=== PATIENT | male | born 1975 | race Caucasian/White ===

== ENCOUNTER 2020-04-10 01:11 | Outpatient (CLI) | payer OTHER, SELFPAY ==
[2020-04-10 21:41] LABS: SARS-CoV-2 RNA PCR Negative
== END 2020-04-10 01:12 | disposition home or self-care (01) ==
LOC: ANHCOVIDDT 01:11
PROVIDERS: PCP Family Medicine; Visit Provider Internal Medicine Gastroenterology
DX: Z01.818 Encounter for other preprocedural examination (principal); Z11.59 Encounter for screening for other viral diseases
CPT/HCPCS: 87635; C9803; U0003

== ENCOUNTER 2020-04-13 03:10 | Day surgery (SDC) | payer OTHER, SELFPAY ==
[2020-04-06 13:45] VITALS: BMI 38.7
[2020-04-13 09:57] VITALS: BMI 38.5
--- NOTE | 2020-04-13 10:07 | WPDANESEPPF ---
Anes - Initial Pre Proc Eval Procedure: Operation Date: 04/13/20 10:45 Proposed Procedures p Esophagogastroduodenoscopy&Screen Colon - Ac Yan MD Date/Time: 04/13/20 10:07 Surgeon: Ac Yan MD Pre Op Diagnosis: Alvarado's Esophagus, Neoplasm Screening Patient Data Age: 45 Gender: M Height: 6 ft 1 in Weight: 132.6 kg Allergies Allergy/AdvReac Type Severity Reaction Status Date / Time No Known Allergies Allergy Verified 04/13/20 09:56 Home Medications Medication Instructions Recorded Confirmed Type amlodipine 10 mg tablet 10 mg PO DAILY #90 tablet 01/19/20 04/06/20 Rx citalopram 20 mg tablet 20 mg PO DAILY #90 tablet 01/19/20 04/06/20 Rx losartan 100 mg tablet 100 mg PO DAILY #90 tablet 01/19/20 04/06/20 Rx cholecalciferol (vitamin D3) 1,250 1,250 mcg PO WEEKLY #12 cap 01/30/20 04/06/20 Rx mcg (50,000 unit) capsule esomeprazole magnesium 40 mg 40 mg PO DAILY #90 cap 02/24/20 04/06/20 Rx capsule,delayed release nystatin 100,000 unit/gram topical 1 applic TOPICAL BID #30 gm 03/18/20 04/06/20 Rx ointment peg 3350-electrolytes 236 240 ml PO Q10M #4000 ml 04/06/20 Rx gram-22.74 gram-6.74 gram-5.86 gram solution Patient hx anesthesia problems: none Family hx anesthesia problems: none PMFSH Past Medical History Medical History (Updated 03/25/20 @ 13:48 by Ac Yan MD) Anxiety Alvarado esophagus Hearing loss Hypertension PTSD (post-traumatic stress disorder) Rectal bleeding Surgical History Surgical History H/O arthroscopic knee surgery Social History Social History Smoking status: Never smoker Alcohol intake: never Substance use: never Substance use type: does not use Gender identity (if verbalized by the patient): Male Spiritual care concerns: No Agree to blood products: Yes Anes - Eval Final PreProcedure Day of Procedure 04/13/20 10:07 Patient weight: obese Heart: regular rate and rhythm Lungs: clear to auscultation Airway: Mallampati scale class II Neurological: alert and oriented Last oral intake: >/= 8 hours ASA classification: III Emergent: no Anesthetic plan: proceed Anesthesia type and monitoring: general GIVS and standard monitoring Informed Consent: The patient's anesthetic plan and its attendant risks and benefits were discussed with the patient/family/POA. Questions were solicited and answers provided to the satisfaction of the patient/family/POA.
[2020-04-13] MEDS: LACTATED RINGERS 1,000 ML 150 ML IV CONT (10:15)
[2020-04-13] MEDS: BENZOCAINE (*SP) 60 ML SPRAY CAN (HURRICAINE) 1 SPRAY MUCOUS MEM (11:10)
[2020-04-13 11:38] VITALS: BP 111/73; PULSE 76; RESP 17; O2SAT 94
[2020-04-13 11:48] VITALS: BP 115/78; PULSE 76; RESP 17; O2SAT 94
[2020-04-13 11:58] VITALS: BP 139/93; PULSE 71; RESP 17; O2SAT 100
== END 2020-04-13 12:25 | disposition home or self-care (01) ==
PROVIDERS: PCP Family Medicine; Visit Provider Internal Medicine Gastroenterology
PROC: 0DJ08ZZ Inspection of Upper Intestinal Tract, Via Natural or Artificial Opening Endoscopic (ICD-10-PCS; CPT 43235; principal; 2020-04-13 10:45)
DX: K92.1 Melena (principal); K57.30 Diverticulosis of large intestine without perforation or abscess without bleeding; K64.8 Other hemorrhoids; K21.0 Gastro-esophageal reflux disease with esophagitis; K44.9 Diaphragmatic hernia without obstruction or gangrene; K22.70 Barrett's esophagus without dysplasia; K29.50 Unspecified chronic gastritis without bleeding; I10 Essential (primary) hypertension; F41.9 Anxiety disorder, unspecified; F43.10 Post-traumatic stress disorder, unspecified; E66.9 Obesity, unspecified; Z68.38 Body mass index [BMI] 38.0-38.9, adult
CPT/HCPCS: 45378; 43239; 88305; J2704; J7120

== ENCOUNTER → 2021-01-22 06:45 | Outpatient (CLI) | payer OTHER, SELFPAY ==
[2021-01-23 00:41] LABS: SARS-CoV-2 RNA PCR Negative
== END ==
PROVIDERS: PCP Family Medicine; Visit Provider Family Medicine
DX: Z20.822 Contact with and (suspected) exposure to COVID-19 (principal); R05 Cough
CPT/HCPCS: C9803; U0003; U0005

== ENCOUNTER 2023-07-04 12:01 | Emergency (ER) | payer OTHER, SELFPAY ==
--- NOTE | ~2023-07-04 | XR_ITS ---
XR heel RT min 2V DATE: 07/04/2023 12:36 INDICATION: Bumped right heel one week ago. Right heel pain. TECHNIQUE: Axial and lateral views COMPARISON: None FINDINGS: No fracture or dislocation or bone destruction of the right calcaneus. IMPRESSION: Negative Reviewed, dictated and finalized at location B. IMPRESSION: Negative
--- NOTE | 2023-07-04 12:05 | ED.LOWEXIN ---
HPI - Extremity Injury (Lower) General Chief Complaint: Extremity Injury, Lower Stated Complaint: Rt Heal Pain Time Seen by Provider: 07/04/23 12:48 Source: patient and RN notes reviewed Mode of arrival: ambulatory Limitations: no limitations History of Present Illness HPI Narrative: 48-year-old male presents with concern for right foot injury. He reports on Sunday he tripped and landed hard on his foot. Reports pain on the lateral posterior foot. He reports he has been walking on the ball of his foot with slight improvement of symptoms until today when he stepped out of his truck and had a sudden burning pain. Reports he has difficulty walking on the foot at all now. He denies decreased sensation, strength, range of motion MD complaint: foot injury Related Data Allergies Allergy/AdvReac Type Severity Reaction Status Date / Time ketorolac [From Toradol] AdvReac coffee Verified 08/09/22 13:52 ground emesis Review of Systems Review of Systems: CONSTITUTIONAL: Denies malaise, chills, sweats, or fever. SKIN: Denies rash or itching, open skin, laceration, abrasion, redness, warmth, swelling. MUSCULOSKELETAL: Reports right foot pain NEUROLOGIC: Denies numbness, weakness All systems reviewed & are unremarkable except as noted in HPI and below PMFSH Past Medical History Medical History (Updated 07/04/23 @ 13:04 by Zroa Goldberg NP) Anxiety Alvarado esophagus Hearing loss Hypertension Jock itch PTSD (post-traumatic stress disorder) Rectal bleeding Surgical History Surgical History H/O arthroscopic knee surgery x4 3 on left 1 on right H/O hernia repair History of gastric surgery History of nasal surgery History of renal stent S/P cystoscopy with ureteral stent placement Family History Family History Mother Hypertension Cancer Father Hearing loss Sibling Diverticula, small intestine Social History Social History Smoking status: Never smoker Second hand tobacco smoke exposure: No Alcohol intake: current Alcohol use details: socially Substance use: never Substance use type: does not use Living arrangements: with family Occupation/Education: occupation Gender identity (if verbalized by the patient): Male Spiritual care concerns: No Agree to blood products: Yes Comments At time of signature, agree with nursing past medical, surgical, social and family history. There is no relevant family history pertinent to the presenting complaint Exam Narrative: GENERAL: Well-appearing, well-nourished, and in no acute distress. HEAD: Normocephalic, atraumatic. EYES: PERRLA, conjunctivae clear NECK: Supple. CHEST: Speaks in full sentences. No respiratory distress. HEART: Regular rate and rhythm. Normal and equal peripheral pulses. EXTREMITIES: Right ankle, foot, digits have grossly normal strength and sensation, throat normal range of motion. Mild lateral foot edema without erythema, warmth, or ecchymosis. Normal sensation with sensitivity to light touch and pain. Lateral heel tenderness. No open wounds, no skin tenting, no devitalized tissue or atrophy, no trophic changes, no obvious deformity, alignment normal, nearby joints and structures intact. Distal pulses palpable and equal bilaterally, skin warm, dry, pink. Capillary refill less than 3 seconds. SKIN: Warm, dry, no rash. NEURO: Alert and oriented x3. PSYCH: Normal mood and affect Course Course Emergency Course: Patient is aware of diagnosis, understands and agrees to treatment plan. Anticipatory guidance given. Patient agrees to follow-up as directed and is aware of reasons to seek care at the emergency department. Portions of this record may have been created with voice recognition software Level of Care: Express Care Visit Vital Signs Vi
[2023-07-04 12:15] VITALS: BP 143/98; PULSE 91; RESP 16; TEMP 36.4; O2SAT 99
[2023-07-04 12:20] VITALS: BP 143/98; PULSE 91; RESP 16; TEMP 36.4; O2SAT 99
== END 2023-07-04 13:11 | disposition short-term general hospital (02) ==
PROVIDERS: Emergency Provider Nurse Practitioner; PCP Family Medicine
DX: S99.921A Unspecified injury of right foot, initial encounter (principal); I10 Essential (primary) hypertension; W01.0XXA Fall on same level from slipping, tripping and stumbling without subsequent striking against object, initial encounter
CPT/HCPCS: 73650; 99213; G0463

== ENCOUNTER 2024-05-28 00:15 | Day surgery (SDC) | payer OTHER, SELFPAY ==
[2024-05-19 15:59] VITALS: BMI 41.0
[2024-05-28] MEDS: LACTATED RINGERS 1,000 ML 150 ML IV CONT (12:53)
--- NOTE | 2024-05-28 13:27 | WPDANESEPPF ---
Anes - Initial Pre Proc Eval Procedure: Operation Date: 05/28/24 14:00 Proposed Procedures p Esophagogastroduodenoscopy - Ac Yan MD Date/Time: 05/28/24 13:27 Surgeon: Ac Yan MD Pre Op Diagnosis: Alvarado's, GERD, peptic ulcer Patient Data Age: 49 Gender: M Height: 1.85 m Weight: 141 kg Allergies Allergy/AdvReac Type Severity Reaction Status Date / Time ketorolac [From Toradol] AdvReac coffee Verified 05/28/24 12:41 ground emesis Home Medications Medication Instructions Recorded Confirmed Type esomeprazole magnesium 40 mg 40 mg PO DAILY #90 caps 02/24/20 05/28/24 Rx capsule,delayed release (Nexium) citalopram 40 mg tablet See Rx Instructions .Route 03/19/24 05/28/24 Rx .COMPLEX #90 tabs amlodipine 10 mg tablet 10 mg PO DAILY #30 tabs 04/10/24 05/28/24 Rx bupropion HCl 75 mg tablet 75 mg PO BID #60 tabs 04/10/24 05/28/24 Rx nystatin 100,000 unit/gram topical 1 applic topical BID #30 grams 04/10/24 05/28/24 Rx cream rosuvastatin 5 mg tablet 5 mg PO DAILY #90 tabs 04/11/24 05/28/24 Rx colestipol 1 gram tablet 1 g PO BID #60 tabs 05/07/24 05/28/24 Rx dexlansoprazole 60 mg 60 mg PO DAILY #90 caps 05/07/24 05/28/24 Rx capsule,biphase delayed release (Dexilant) losartan 100 mg tablet 100 mg PO DAILY #90 tabs 05/15/24 05/28/24 Rx Patient hx anesthesia problems: none Family hx anesthesia problems: none Results Review: All pre-operative results and documents have been reviewed as part of the pre-operative evaluation. [facility] Past Medical History Medical History Anxiety Alvarado esophagus Chondrocalcinosis of knee Depression Essential (primary) hypertension Hearing loss Hyperlipidemia rosuvastatin 5 mg po nightly started 04/11/24 Jock itch Knee pain, bilateral Left knee DJD PTSD (post-traumatic stress disorder) Rectal bleeding Right knee DJD UTI (urinary tract infection) Surgical History Surgical History H/O arthroscopic knee surgery x4 3 on left 1 on right H/O hernia repair History of gastric surgery History of nasal surgery History of renal stent S/P cystoscopy with ureteral stent placement Family History Family History Mother Hypertension Cancer Father Hearing loss Sibling Diverticula, small intestine Mother Hypertension Family history of malignant neoplasm Patient's mother is Father Family history of lung cancer Patient's father is Social History Social History Social History: very confident with medical forms Smoking status: Never smoker Second hand tobacco smoke exposure: No Alcohol intake: current Alcohol use details: socially Substance use: never Substance use type: does not use Do You Feel Safe in your Home?: Yes Lack of Transportation: No Lack of Food: Never True Current Housing: I Have Housing Concerned About Future Housing: No Difficulty Paying Gas/Electric Bills: No Difficulty Paying for Meds: No Currently Unemployed: No Education: High School Diploma/GED Difficulty w/ Childcare or Family Care: No Living arrangements: with family Occupation/Education: occupation Gender identity (if verbalized by the patient): Male Spiritual care concerns: No Agree to blood products: Yes Anes - Eval Final PreProcedure Day of Procedure 05/28/24 13:27 Patient weight: morbidly obese Heart: regular rate and rhythm Lungs: clear to auscultation Airway: Mallampati scale class III Neurological: alert and oriented Last oral intake: >/= 8 hours ASA classification: III Emergent: no Anesthetic plan: proceed Anesthesia type and monitoring: general GIVS and standard monitoring Results Review: All p
--- NOTE | 2024-05-28 13:59 | PM.HPGS ---
History of Present Illness History of Present Illness Consent: Risks, benefits, and alternatives have been discussed and questions answered. Patient agrees to proceed with procedure. Chief complaint: Barnett's, GERD, peptic ulcer Narrative: Kleber Sanchez Sr. is a 49 year old male here for egd, last one about 6 years ago, had h/o johnie and barnett's using nexium daily Review of Systems Review of Systems: All systems reviewed & are unremarkable except as noted in HPI and below PMFSH Past Medical History Medical History Anxiety Barnett esophagus Chondrocalcinosis of knee Depression Essential (primary) hypertension Hearing loss Hyperlipidemia rosuvastatin 5 mg po nightly started 04/11/24 Jock itch Knee pain, bilateral Left knee DJD PTSD (post-traumatic stress disorder) Rectal bleeding Right knee DJD UTI (urinary tract infection) Surgical History Surgical History H/O arthroscopic knee surgery x4 3 on left 1 on right H/O hernia repair History of gastric surgery History of nasal surgery History of renal stent S/P cystoscopy with ureteral stent placement Family History Family History Mother Hypertension Cancer Father Hearing loss Sibling Diverticula, small intestine Mother Hypertension Family history of malignant neoplasm Patient's mother is Father Family history of lung cancer Patient's father is Social History Social History Social History: very confident with medical forms Smoking status: Never smoker Second hand tobacco smoke exposure: No Alcohol intake: current Alcohol use details: socially Substance use: never Substance use type: does not use Do You Feel Safe in your Home?: Yes Lack of Transportation: No Lack of Food: Never True Current Housing: I Have Housing Concerned About Future Housing: No Difficulty Paying Gas/Electric Bills: No Difficulty Paying for Meds: No Currently Unemployed: No Education: High School Diploma/GED Difficulty w/ Childcare or Family Care: No Living arrangements: with family Occupation/Education: occupation Gender identity (if verbalized by the patient): Male Spiritual care concerns: No Agree to blood products: Yes Meds Home Medications and Allergies Home Medications Medication Instructions Recorded Confirmed Type esomeprazole magnesium 40 mg 40 mg PO DAILY #90 caps 02/24/20 05/28/24 Rx capsule,delayed release (Nexium) citalopram 40 mg tablet See Rx Instructions .Route 03/19/24 05/28/24 Rx .COMPLEX #90 tabs amlodipine 10 mg tablet 10 mg PO DAILY #30 tabs 04/10/24 05/28/24 Rx bupropion HCl 75 mg tablet 75 mg PO BID #60 tabs 04/10/24 05/28/24 Rx nystatin 100,000 unit/gram topical 1 applic topical BID #30 grams 04/10/24 05/28/24 Rx cream rosuvastatin 5 mg tablet 5 mg PO DAILY #90 tabs 04/11/24 05/28/24 Rx colestipol 1 gram tablet 1 g PO BID #60 tabs 05/07/24 05/28/24 Rx dexlansoprazole 60 mg 60 mg PO DAILY #90 caps 05/07/24 05/28/24 Rx capsule,biphase delayed release (Dexilant) losartan 100 mg tablet 100 mg PO DAILY #90 tabs 05/15/24 05/28/24 Rx Allergies Allergy/AdvReac Type Severity Reaction Status Date / Time ketorolac [From Toradol] AdvReac coffee Verified 05/28/24 12:41 ground emesis Exam Const: General: comfortable and no acute distress HENMT: Face/Nose/Sinus: Normal nares present Eyes: General: appearance normal, both eyes and all related structures Neck: Neck: no JVD Resp: Auscultation: clear to auscultation bilaterally Cardio: Rate: regular rate Rhythm: regular rhythm GI: Inspection: non-distended GI Palp: Yes Soft to palpation Skin: General skin exam: normal color Neuro: General
[2024-05-28] MEDS: BENZOCAINE (*SP) 60 ML SPRAY CAN (HURRICAINE) 1 SPRAY MUCOUS MEM (14:03)
[2024-05-28 14:09] VITALS: BP 116/76; PULSE 76; RESP 22; O2SAT 99
[2024-05-28 14:19] VITALS: BP 119/67; PULSE 73; RESP 21; O2SAT 97
[2024-05-28 14:29] VITALS: BP 128/73; PULSE 63; RESP 15; O2SAT 100
== END 2024-05-28 14:35 | disposition home or self-care (01) ==
PROVIDERS: PCP Nurse Practitioner Family; Referring Provider Nurse Practitioner; Visit Provider Internal Medicine Gastroenterology
PROC: 0DJ08ZZ Inspection of Upper Intestinal Tract, Via Natural or Artificial Opening Endoscopic (ICD-10-PCS; CPT 43235; principal; 2024-05-28 14:00)
DX: K22.70 Barrett's esophagus without dysplasia (principal); K21.00 Gastro-esophageal reflux disease with esophagitis, without bleeding; I10 Essential (primary) hypertension; E78.5 Hyperlipidemia, unspecified; F41.9 Anxiety disorder, unspecified; F32.A Depression, unspecified; F43.10 Post-traumatic stress disorder, unspecified; E66.01 Morbid (severe) obesity due to excess calories; Z68.41 Body mass index [BMI] 40.0-44.9, adult
CPT/HCPCS: 43239; 88305; J2704; J7120